=== PATIENT | male | born 1980 | race Two or more races ===

== ENCOUNTER 2021-06-30 21:00 | Emergency (ER) | payer SELFPAY ==
[~2021-06-30] VITALS: Ht 167.6 cm; Wt 76.2 kg
[2021-06-30 21:12] VITALS: BP 105/72
== END 2021-06-30 21:22 ==
LOC: EDBD 21:00 → ER 21:01
DX: R51.9 Headache, unspecified (principal); R11.0 Nausea
CPT/HCPCS: 99283; J7030